=== PATIENT | female | born 1965 | race Caucasian/White ===

== ENCOUNTER → 2024-01-15 07:11 | Outpatient (REF) | payer OTHER, SELFPAY | LOC: WDC 07:11 | PROVIDERS: ATTENDING PHYSICIAN Obstetrics & Gynecology; FAMILY PHYSICIAN Family Medicine | DX: Z12.31 Encounter for screening mammogram for malignant neoplasm of breast (principal) | CPT/HCPCS: 77063; 77067 ==

== ENCOUNTER → 2024-05-20 06:41 | Day surgery (SDC) | payer OTHER, SELFPAY | LOC: GI 06:41 | PROVIDERS: ATTENDING PHYSICIAN Internal Medicine Gastroenterology; FAMILY PHYSICIAN Family Medicine | DX: D12.0 Benign neoplasm of cecum (principal); K57.30 Diverticulosis of large intestine without perforation or abscess without bleeding; D12.8 Benign neoplasm of rectum; Z86.010 Personal history of colon polyps | CPT/HCPCS: 45385; 88305 ==

== ENCOUNTER → 2024-07-29 18:28 | Outpatient (REF) | payer OTHER, SELFPAY | LOC: MRI 3T 18:28 | PROVIDERS: ATTENDING PHYSICIAN Surgery; FAMILY PHYSICIAN Family Medicine | DX: R92.2 Inconclusive mammogram (principal); Z91.89 Other specified personal risk factors, not elsewhere classified | CPT/HCPCS: 77049; A9585 ==

== ENCOUNTER → 2025-01-18 07:24 | Outpatient (REF) | payer OTHER, SELFPAY | LOC: WDC 07:24 | PROVIDERS: ATTENDING PHYSICIAN Obstetrics & Gynecology; FAMILY PHYSICIAN Family Medicine | DX: Z12.31 Encounter for screening mammogram for malignant neoplasm of breast (principal) | CPT/HCPCS: 77063; 77067 ==

== ENCOUNTER → 2025-07-14 08:02 | Outpatient (REF) | payer OTHER, SELFPAY ==
[2025-07-14 09:34] LABS: Hematocrit 43.7 % (37.0-47.0); Hemoglobin 14.6 g/dL (12.0-16.0); Mean Corp Hgb Conc. 33.4 g/dL (33.0-37.0); Mean Corpuscular Volume 90.1 fL (81.0-99.0); Nucleated Red Blood Cells % 0 %; Platelet Count 203 10^3/uL (130-400); Red Cell Dist. Width 12.8 % (11.5-14.5)
[2025-07-14 09:37] LABS: ALT (SGPT) 29 U/L (0-35); AST (SGOT) 20 U/L (14-36); Albumin 4.6 g/dl (3.5-5.0); Alkaline Phosphatase 49 U/L (38-126); Blood Urea Nitrogen 18 mg/dl (7-17); Calcium 10.2 mg/dl (8.4-10.2); Carbon Dioxide 26 mmol/L (22-30); Chloride 106 mmol/L (98-107); Glucose 108 mg/dl (70-99); HDL Cholesterol 31 mg/dl; LDL Cholesterol, Calculated 116 mg/dl; Potassium 5.1 mmol/L (3.5-5.1); Sodium 139 mmol/L (135-145); Total Protein 7.0 g/dl (6.3-8.2); Very Low Density Lipoprotein 57 mg/dl (0-30); eGFR > 60.00
== END ==
LOC: REG 08:02
PROVIDERS: ATTENDING PHYSICIAN Family Medicine
DX: I48.0 Paroxysmal atrial fibrillation (principal); I10 Essential (primary) hypertension; E78.5 Hyperlipidemia, unspecified; K21.9 Gastro-esophageal reflux disease without esophagitis; E78.2 Mixed hyperlipidemia
CPT/HCPCS: 36415; 80053; 80061; 85025

== ENCOUNTER → 2025-08-31 17:31 | Outpatient (REF) | payer OTHER, SELFPAY | LOC: MRI 3T 17:31 | PROVIDERS: ATTENDING PHYSICIAN Nurse Practitioner Adult Health; FAMILY PHYSICIAN Family Medicine | DX: R92.2 Inconclusive mammogram (principal); Z80.3 Family history of malignant neoplasm of breast; Z91.89 Other specified personal risk factors, not elsewhere classified | CPT/HCPCS: 77049; A9585 ==